=== PATIENT | male | born 1990 | race Caucasian/White ===

== ENCOUNTER → 2017-09-03 11:52 | Outpatient (CLI) | payer OTHER, SELFPAY ==
--- NOTE | 2017-09-03 12:07 | XR_ITS ---
XR chest 2V HISTORY: ITS.REASON: MYOFASCITIS ORDERING PHYSICIAN: Moses Bryson MD PATIENT AGE: 27 years COMPARISON: 07/03/2014 FINDINGS: The cardiomediastinal silhouette and pulmonary vascularity are within normal limits. The lungs are clear without infiltrates, suspicious nodules, or pleural effusions. No acute bony abnormalities. IMPRESSION: Negative chest, no acute finding
--- NOTE | 2017-09-03 12:07 | XR_ITS ---
XR shoulder RT min 2V HISTORY: ITS.REASON: MYOFASCITIS ORDERING PHYSICIAN: Moses Bryson MD PATIENT AGE: 27 years COMPARISON: FINDINGS: No fracture or dislocation. No lytic or blastic change. There is normal mineralization. The joint spaces are well-preserved. No significant degenerative/arthritic changes. No erosive changes evident. IMPRESSION: Negative, no acute finding
== END ==
PROVIDERS: PCP Family Medicine; Visit Provider Family Medicine
DX: M60.9 Myositis, unspecified (principal)
CPT/HCPCS: 71046; 73030

== ENCOUNTER → 2017-09-14 10:52 | Outpatient (CLI) | payer OTHER, SELFPAY ==
--- NOTE | 2017-09-14 10:57 | XR_ITS ---
EXAM: XR cervical spine 5V HISTORY: Right shoulder pain with burning sensation ITS.REASON: ACUTE RT SHOULDER PAIN ORDERING PHYSICIAN: Moses Bryson MD PATIENT AGE: 27 years COMPARISON: FINDINGS: Normal alignment. No fracture or dislocation. No lytic or blastic change. No significant degenerative change. The disc spaces are preserved. No evidence of cervical rib IMPRESSION: Negative cervical spine
== END ==
PROVIDERS: PCP Family Medicine; Visit Provider Family Medicine
DX: M25.511 Pain in right shoulder (principal)
CPT/HCPCS: 72050

== ENCOUNTER 2017-09-21 10:00 | Outpatient (RCR) | payer OTHER, SELFPAY | END 2017-09-21 10:01 | disposition home or self-care (01) | LOC: PT 10:00 | PROVIDERS: Family Provider Family Medicine; PCP Family Medicine; Visit Provider Family Medicine | DX: M60.9 Myositis, unspecified (principal) | CPT/HCPCS: 97010; 97014; 97110; 97140; 97163; G0283 ==

== ENCOUNTER → 2017-12-11 10:41 | Outpatient (CLI) | payer OTHER, SELFPAY ==
--- NOTE | 2017-12-11 10:45 | MR_ITS ---
MR shoulder RT wo con Ordering Physician: Israel Barrow MD Patient Age: 27 years: Male HISTORY: ITS.REASON: ACUTE PAIN OF RIGHT SHOULDER Right shoulder pain since FebruaryMarch 2017. Limited range of motion. No known injury. TECHNIQUE: Multiplanar multisequence imaging on 1.5 T MR. COMPARISON :Plain films right shoulder 09/03/2017 FINDINGS Supraspinatus tendon.. Minimal findings There is increased signal at the insertion of the supraspinatus tendon which I favor reflects tendinopathy. No full-thickness tear nor tendon retraction. ... Question possible small superior surface partial tear.. I do not see a definitive full-thickness tear. However there is a tiny amount scant fluid at the subdeltoid subacromial bursa which makes it difficult to totally exclude a tiny pinhole tear. The latter could reflect mild bursitis. Modest subacromial space and coronal images. 6 mm beneath the tip of the acromion on these views.. Acromion for overall has a slight from the AC joint of the thumbs fairly horizontal with only scant hours sloping above the humeral head.. On the sagittal is moderately pronounced posterior downward sloping of acromion which narrows the posterior subacromial space to 6 mm near the junction of the supraspinatus and infraspinatus. This is where we encounter some trace scant fluid at the subacromial bursa here -barely evident. Coronal image 7. This could reflect some minimal bursitis rather tiny pinhole rotator cuff tear. . Subscapularis tendon appears intact but does demonstrate slight increased signal superior aspect of its insertion. Reflect some minor tendinopathy. Unimpressive.. Infraspinatus tendon appears intact. With some minor fluid just at the infraspinatus insertion. Possible early obstruction erosion feature. Glenoid. Osseous glenoid intact with anterior and posterior glenoid labrum are nicely seen and intact. Perhaps Scant increased fluid at the shoulder joint outlines the structures. Mild AC joint arthropathy. IMPRESSION . 1. Supraspinatus tendinopathy near insertion at critical zone. There may be a small partial tear here involving superior bursal surface.. I do not see a definitive full-thickness tear & there is No prominent rotator cuff tear nor tendon retraction tendon retraction. These the above features are minimal signal changes and findings at the supraspinatus tendon However there is scant trace fluid at the subdeltoid subacromial bursa.-The latter can reflect a tiny pinhole tear; although can be seen with subacromial bursitis. 2. Patient with slight downward orientation of the acromion on coronal projection and on the sagittal view posterior downward sloping of the acromion with narrowing of the subacromial space in these regions. This anatomy may contribute to impingement symptoms 2. Mild AC joint arthropathy.
== END ==
PROVIDERS: Family Provider Family Medicine; PCP Family Medicine; Visit Provider Family Medicine
DX: M25.511 Pain in right shoulder (principal)
CPT/HCPCS: 73221

== ENCOUNTER → 2018-06-07 07:44 | Outpatient (CLI) | payer OTHER, SELFPAY ==
--- NOTE | 2018-06-07 07:51 | US_ITS ---
US abdomen limited History:] Quadrant pain Ordering Physician:Ilya Martinez MD Patient Age: 27 years Comparison:None Findings: Pancreas:Unremarkable. No obvious mass or abnormal fluid collection. No ductal dilatation Liver:No focal liver lesions demonstrated. Homogeneous echogenicity. No intrahepatic biliary ductal dilatation evident Right Kidney:Unremarkable. Normal size and echogenicity. No hydronephrosis Gallbladder:No gallstones, gallbladder wall thickening, pericholecystic fluid, or biliary dilatation. There is a small amount sludge in the gallbladder. Impression: 1. No stones gallbladder wall thickening or pericholecystic fluid. 2. Small amount sludge within the gallbladder
== END ==
PROVIDERS: PCP Family Medicine; Visit Provider Family Medicine
DX: R10.11 Right upper quadrant pain (principal)
CPT/HCPCS: 76705

== ENCOUNTER → 2018-06-21 10:08 | Outpatient (CLI) | payer OTHER, SELFPAY ==
--- NOTE | 2018-06-21 10:12 | NM_ITS ---
NM hepatobiliary w pharm HISTORY: Right upper quadrant pain ITS.REASON: GB SLUDGE ORDERING PHYSICIAN: Ilya Martinez MD PATIENT AGE: 28 years COMPARISON: 06/07/2018 DOSE: 8.70 MCI TC Choletec 2.5 MCG INJ into RT ANT. FINDINGS: Homogeneous activity is present within the hepatic parenchyma. Activity is present in the gallbladder by 5 minutes. Activity is present in the small bowel by 10 minutes. The gallbladder ejection fraction is calculated to be 97% The patient did not report pain or other symptoms during CCK infusion. IMPRESSION: Unremarkable hepatobiliary scan and gallbladder ejection fraction. No evidence of common or cystic duct obstruction with normal gallbladder ejection fraction
--- NOTE | 2018-06-21 10:27 | HMH.ITSHM ---
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 []VENLAFAXINE
== END ==
PROVIDERS: PCP Family Medicine; Visit Provider Family Medicine
DX: K82.8 Other specified diseases of gallbladder (principal)
CPT/HCPCS: 78227; A9537; J2805

== ENCOUNTER 2018-07-06 09:00 | Outpatient (RCR) | payer OTHER, SELFPAY ==
--- NOTE | 2018-06-15 09:48 | HMH.OTOPEV ---
OT Inpatient Evaluation Rehab OT Outpatient Eval Start: 06/15/18 09:29 Freq: Status: Active Protocol: Document 06/15/18 09:31 TFRY (Rec: 06/15/18 09:48 TFRY [id number]) Electronically Signed By Rose Harris, OT 06/15/18 09:31 Outpatient Therapy Subjective History Subjective History THIS IS A 28 YEAR OLD RIGHT HANDED MALE REFERRED TO OCCUPATIONAL THERAPY FOR RIGHT SHOULDER BICEP TENDINITIS; TENDINOPATHY OF ROTATOR CUFF, SCAPULOTHORACIC BURSITIS. PATIENT REPORTS THE PROBLEM HAS BEEN ONGOING SINCE MARCH 20, 2017. PATIENT REPORTS THAT HE CAN NOT RECALL DOING ANYTHING TO HIS SHOULDER. REPORTS THAT HE HAS BEEN TO THERAPY IN THE PAST WITHOUT ANY IMPROVEMENT. Chief Complaint Pain Stiff Symptom Type Ache Sharp Burning Numbness Tingling Symptoms Relieved By Nothing Symptoms Aggravated By Physical Activity Prior Functional Limitations None Current Functional Limitations Reaching Lifting Housework Dressing Sleeping Symptom Description Constant but Variable Level of pain today (0-10) 5 Pain scale - at its best (0-10) 5 Pain scale - at its worst (0-10) 10 Shoulder/Elbow Eval Shoulder Objective Measurements Palpation Tenderness tenderness shoulder exam standard right tenderness over the bicipital tendon right shoulder exam standard tenderness over the SA bursa shoulder right exam standard Shoulder Palpation Findings Tenderness Shoulder ROM Right Shoulder ROM Limitations Pain Shoulder Abduction Active Range of 65 Motion (degrees) Shoulder Abduction Passive Range of 70 Motion (degrees) Shoulder Flexion Active Range of Motion 70 (degrees) Query Text: Shoulder Flexion Passive Range of Motion 80 (degrees) Shoulder External Rotation Active Range WFL of Motion (degrees) Shoulder External Rotation Passive Range WFL of Motion (degrees) Shoulder Internal Rotation Active Range WFL of Motion (degrees) Shoulder Internal Rotation Passive Range WFL
== END 2018-07-06 09:10 | disposition home or self-care (01) ==
LOC: OT 09:00
PROVIDERS: Visit Provider Orthopaedic Surgery
DX: M67.911 Unspecified disorder of synovium and tendon, right shoulder (principal); M25.511 Pain in right shoulder; M75.21 Bicipital tendinitis, right shoulder; M75.51 Bursitis of right shoulder; G89.29 Other chronic pain
CPT/HCPCS: 97033; 97110; 97165

== ENCOUNTER → 2018-08-11 12:54 | Outpatient (CLI) | payer OTHER, SELFPAY ==
--- NOTE | 2018-08-11 | IR_ITS ---
MR shoulder RT w con, IR arthrogram shoulder RT HISTORY:Chronic right shoulder pain with tingling and shoulder and popping, anterior pain with limited range of motion ITS.REASON: RIGHT SHOULDER PAIN ORDERING PHYSICIAN: Lacho Gordillo PATIENT AGE: 28 years Comparison: 12/11/2017 Right shoulder arthrogram: Following obtaining informed consent and timeout procedure under aseptic conditions and local anesthesia with 1% buffered lidocaine and 21-gauge spinal needle was inserted into the right shoulder joint via the anterior approach. A mixture of gadolinium, Optiray, and lidocaine was injected into the shoulder joint. There was a small amount of extravasation in the subscapularis region which may be due to overfilling. The patient tolerated the procedure well without evidence of immediate complications. Arthrogram findings: No abnormal localization of contrast in the subacromial region that would indicate a rotator cuff tear. No evidence of adhesive capsulitis. The patient was then taken to the MRI suite where routine MRI arthrogram sequences were performed including ABER images. FINDINGS: There was no evidence of contrast in the subacromial region that would indicate a rotator cuff tear. Supraspinatus and infraspinatus tendons appear intact there is minimal amount fluid is present in the subacromial region suggesting mild bursitis. There is mild subacromial stenosis with mild thickening of the supraspinatus tendon distally suggesting tendinopathy/tendinosis. No obvious labral tear. The bicipital tendon is in place. IMPRESSION: 1. No evidence of rotator cuff tear. 2. No evidence of labral tear. 3. Subacromial stenosis with tendinopathy/tendinosis of the supraspinatus tendon with a small amount of fluid in the subacromial region suggesting mild bursitis
== END ==
PROVIDERS: PCP Family Medicine; Visit Provider Orthopaedic Surgery
DX: M25.512 Pain in left shoulder (principal)
CPT/HCPCS: 73040; 73222

== ENCOUNTER 2019-01-31 23:13 | Observation (INO) ==
--- NOTE | 2019-01-31 23:45 | Emergency Department Note ---
ED Disposition Clinical Impression: UGIB (upper gastrointestinal bleed), Obesity (BMI 30-39.9) Disposition: Admitted as Observation Condition on Discharge: Good Instructions: DI for Diarrhea and Traveler's Diarrhea -- Adult, DI for Diarrhea and Traveler's Diarrhea -- Child, DI for Nausea -- Adult, DI for Nausea -- Child Referrals: Ilya Martinez MD [Primary Care Provider] - - Critical Care Critical Care Time: No Attestation: On 01/31/19, the high probability of a clinically significant, sudden or life threatening deterioration of the following system(s) required my full and direct attention, intervention and personal management. The time I documented below is in addition to time spent performing reported procedures but includes the following listed in this critical care notation. Medical Decision Making - Medical Records Medical records reviewed: Yes: I reviewed the patient's medical records. - Yasmany Inquiry Pt receiving controlled substance: No Vital Signs: 01/31/19 23:24 02/01/19 00:17 Temperature 98.8 F Temperature Source Oral Pulse Rate [Orthostatic Lying Right Brachial] 78 Pulse Rate [Orthostatic Sitting Right Brachial] 83 Pulse Rate [Orthostatic Standing Right Brachial] 93 H Pulse Rate [Right Brachial] 105 H Respiratory Rate 20 Blood Pressure [Orthostatic Lying Right Arm] 127/78 Blood Pressure [Orthostatic Sitting Right Arm] 130/92 H Blood Pressure [Orthostatic Standing Right Arm] 127/86 Blood Pressure [Right Arm] 159/103 H Blood Pressure Mean [Right Arm] 121 Blood Pressure Source [Right Arm] Automatic Cuff Blood Pressure Position [Right Arm] Sitting 02 Sat by Pulse Oximetry 94 L Oxygen Delivery Method Room Air - Lab Data Lab results reviewed: Yes: I reviewed the patient's lab results. Lab Results 01/31/19 23:39: WBC 13.2 H D, RBC 4.59 L, Hgb 13.7 L, Hct 41.0 L, MCV 89.4, MCH 29.9, MCHC 33.4, RDW 13.0, Plt Count 418, MPV 6.9 L, Neut % (Auto) 74.5, Lymph % (Auto) 16.9, Haakon % (Auto) 8.0, Eos % (Auto) 0.4, Baso % (Auto) 0.2, Neut # (Auto) 9.8 H, Lymph # (Auto) 2.2, Haakon # (Auto) 1.1 H, Eos # (Auto) 0.1, Baso # (Auto) 0.0 01/31/19 23:39: Sodium 139, Potassium 4.1, Chloride 104, Carbon Dioxide 24, Anion Gap 15.1 H, BUN 20 H D, Creatinine 1.06, Estimated Creat Clear 201, Estimated GFR 84, Est GFR ( Amer) 101, Glucose 113 H, Calcium 8.7, Total Bilirubin 0.2, AST 20, ALT 62, Alkaline Phosphatase 110, Total Protein 7.2, Albumin 3.7, Globulin 3.5 H, Albumin/Globulin Ratio 1.1, Amylase 17 L 01/31/19 23:39: Lipase 228 01/31/19 23:50: Urine Color Yellow, Urine Appearance Clear, Urine pH 6.0, Ur Specific [place] 1.025, Urine Protein Negative, Urine Glucose (UA) Negative, Urine Ketones Negative, Urine Blood Negative, Urine Nitrate Negative, Urine Bilirubin Negative, Urine Urobilinogen 0.2, Ur Leukocyte Esterase Negative, Urine WBC Occasional, Urine Bacteria 1+, Urine Mucus Trace 01/31/19 23:53: Stool Occult Blood Positive A Result diagrams: 01/31/19 23:39 01/31/19 23:39 Orders (Tests/Meds): ED MEDICATIONS Generic Name Dose Route Start Last Admin Trade Name Freq PRN Reason Stop Dose Admin Sodium Chloride 1,000 mls @ 999 mls/hr 01/31/19 23:45 01/31/19 23:57 Sod Chlor 0.9% 1000ml Bag IV 02/01/19 00:45 999 mls/hr .Q1H1M [facility] Administration Discontinued Medications Generic Name Dose Route Start Last Admin Trade Name Freq PRN Reason Stop Dose Admin Ondansetron HCl 4 mg 01/31/19 23:43 01/31/19 23:57 Zofran 4mg/2ml Vial IV 01/31/19 23:44 4 mg ONCE ONE Administration ORDERS Category Date Time Status CXR 2 view (NOT portable) [XR chest 2V] Stat Exams 02/01/19 00:28 Ordered - Physician Consults Physician Consulted: terrence Reason -: Admission GI Bleed HPI - General Chief complaint: Nausea/Vomiting/Diarrhea Stated complaint: vomiting, stool almost black,lightheaded Time Seen by Provider: 01/31/19 23:43 Mode of Arrival: Ambulatory Source of Information: Patient, Spouse, Medical Record Limitations: No Limitations Description of Symptoms (Recalled from ER Triage Doc. by RN): Pt was seen yesterday in the ED and was dx with pleurisy, he states he started vomiting black and having black stools. - History of Present Illness HPI Narrative: pt with recent ed visit for clinical specialist cough and had neg cxr with dx of pleurisy- pt was given steroids and nsaif - pt dev episode of nausea and brownish vomitus and has dark stool - no prev hx of gi bleed- no etoh or tob complaint: melena Onset (ago): hour(s) Consistency: intermittent Severity: moderate Associated symptoms: nausea Treatments Prior to Arrival: none - Related Data Home Medications Medication Instructions Recorded Confirmed Diclofenac Sodium [Diclofenac 75mg 75 mg PO BID 01/31/19 01/31/19 Tab] predniSONE [Prednisone 50mg Tab] 50 mg PO DAILY 01/31/19 01/31/19 Allergies Allergy/AdvReac Type Severity Reaction Status Date / Time amoxicillin Allergy Unknown Verified 01/31/19 23:29 allergy reaction erythromycin base Allergy Unknown Verified 01/31/19 23:29 allergy reaction [facility] History - Hepatitis A Screen Drug use history?: No High risk sexual behaviors?: No History of sexually transmitted infection?: No Currently employed?: No Childcare worker?: No Do you have indoor plumbing?: Yes Do you have electricity?: Yes Attestation statement:: This patient has been screened for Hepatitis A risk factors. I have reviewed the patient's past medical history: Yes Laterality Cases: Bilateral: Tonsillectomy - Social History Smoking Status: Never smoker Alcohol Intake: former Occupational Status: unemployed Housing: house Household Members: other Family Hx:: Cancer, Coronary Artery Disease, Diabetes ROS Obtained: Yes All systems reviewed & no additional complaints - Constitutional Constitutional: Denies fever(s) - Eyes Eyes: Denies change in vision - ENT Ears, Nose, Mouth, and Throat: Denies sore throat - Cardiovascular Cardiovascular: Denies chest pain - Respiratory Respiratory: No cough - Gastrointestinal Gastrointestingal: Reports: as per HPI, abdominal pain, black, tarry stools, vomiting - Genitourinary Male Genitourinary: Denies hematuria - Musculoskeletal Musculoskeletal: Denies joint swelling - Integumentary/Breasts Skin/Breast: Denies rash - Neurologic Neurologic: Denies seizure-like activity Physical Exam - General General appearance: alert, obese - Head Head exam: normocephalic - Eye Eye exam: Present: PERRL, EOMI. Absent: scleral icterus - ENT ENT exam: Present: mucous membranes dry - Neck Neck exam: Present: trachea midline - Respiratory Respiratory exam: Present: normal lung sounds bilaterally. Absent: respiratory distress - Cardiovascular Cardiovascular exam: Present: regular rate. Absent: systolic murmur - Abdominal Exam Abdominal exam: Present: soft. Absent: tenderness, guarding, rebound - Rectal Exam Rectal exam: Present: normal rectal tone, heme (+) stool, black stool - Extremities Exam Extremities exam: Present: full ROM - Back Exam Back exam: Present: full ROM - Neurological Exam Neurological exam: Present: alert, oriented X3, CN II-XII intact - Psychiatric Psychiatric exam: Present: normal affect - Skin Skin exam: Present: rash
[2019-01-31 23:56] LABS: Basophils % 0.2 % (0.1-2.0); Eosinophils # 0.1 K/mm3 (0.0-0.4); Eosinophils % 0.4 % (0.1-12.0); Hemoglobin 13.7 g/dL (14.1-18.0); Lymphocytes # 2.2 K/mm3 (0.7-4.5); Lymphocytes % 16.9 % (10-50); Mean Corpuscular HGB Conc 33.4 g/dL (31.8-35.4); Mean Corpuscular Volume 89.4 fl (80-94); Mean Platelet Volume 6.9 fl (7.4-10.4); Monocytes # 1.1 K/mm3 (0.1-1.0); Neutrophils # 9.8 K/mm3 (1.8-7.8); Neutrophils % 74.5 % (37.0-80.0); Platelet Count 418 K/mm3 (142-424); Red Blood Count 4.59 M/mm3 (4.60-6.20); White Blood Count 13.2 K/mm3 (4.8-10.8)
[2019-01-31 23:58] LABS: Microscopic, Urine URINE MICROSCOPIC (MICROSCOPIC)
[2019-01-31 23:59] LABS: Appearance,Urine CLEAR (Clear); Bilirubin,Urine Negative (Negative); Blood, Urine Negative (Negative); Color,Urine YELLOW (Yellow); Glucose,Urine (UA) Negative (Negative); Ketones,Urine Negative (Negative); Leukocyte Esterase,Urine Negative (Negative); Protein,Urine Negative (Negative); Specific Gravity, Urine 1.025 (1.005-1.030); Urobilinogen,Urine 0.2 EU/dl (0.2)
[2019-02-01 00:07] LABS: Albumin Level 3.7 gm/dL (3.4-5.0); Albumin/Globulin Ratio 1.1 (1.1-1.8); Anion Gap 15.1 mEq/L (5-15); Bilirubin,Total 0.2 mg/dL (0.2-1.0); Calcium 8.7 mg/dL (8.5-10.1); Globulin 3.5 gm/dl (1.3-3.2); Total Protein,Serum 7.2 gm/dL (6.4-8.2)
[2019-02-01 00:12] LABS: Bacteria,Urine 1+ /lpf; Mucus,Urine Trace /lpf; WBC,Urine Occasional #/hpf (0-3)
[2019-02-01 06:18] LABS: Basophils % 0.3 % (0.1-2.0); Eosinophils # 0.1 K/mm3 (0.0-0.4); Eosinophils % 0.4 % (0.1-12.0); Hematocrit 38.9 % (42.0-52.0); Hemoglobin 12.6 g/dL (14.1-18.0); Lymphocytes # 3.7 K/mm3 (0.7-4.5); Mean Corpuscular HGB Conc 32.5 g/dL (31.8-35.4); Mean Corpuscular Volume 90.2 fl (80-94); Mean Platelet Volume 6.6 fl (7.4-10.4); Monocytes # 0.8 K/mm3 (0.1-1.0); Monocytes % 6.6 % (1.7-9.3); Neutrophils # 6.8 K/mm3 (1.8-7.8); Neutrophils % 59.6 % (37.0-80.0); Platelet Count 338 K/mm3 (142-424); Red Blood Count 4.32 M/mm3 (4.60-6.20); White Blood Count 11.3 K/mm3 (4.8-10.8)
[2019-02-01 06:25] LABS: Anion Gap 9.7 mEq/L (5-15); Calcium 8.3 mg/dL (8.5-10.1)
--- NOTE | 2019-02-01 07:32 | Pharmacy Consult Notes ---
[facility] Pharm[facility] VTE Monitoring - Patient Demographics Admission date: 01/31/19 Report Date: 02/01/19 Time: 07:32 Allergies/Adverse Reactions: Patient Allergies amoxicillin Allergy (Verified 01/31/19 23:29) Unknown allergy reaction erythromycin base Allergy (Verified 01/31/19 23:29) Unknown allergy reaction Height: 1.88 m Weight: 142.116 kg Patient Problems: Current Active Problems UGIB (upper gastrointestinal bleed) (Acute) Obesity (BMI 30-39.9) (Acute) - VTE Risk Labs: VTE Related Lab Results Hgb 12.6 g/dL (14.1-18.0) L 02/01/19 06:08 Hct 38.9 % (42.0-52.0) L 02/01/19 06:08 Plt Count 338 K/mm3 (142-424) 02/01/19 06:08 BUN 16 mg/dL (7-18) 02/01/19 06:08 Creatinine 0.98 mg/dL (0.70-1.30) 02/01/19 06:08 Estimated Creat Clear 228 mL/min (50-200) 02/01/19 06:08 Was VTE Risk Assessment Performed: Yes VTE Score: 1 VTE Risk Level: Very Low Risk - Prophylaxis VTE Prophylaxis Ordered?: Yes Types of VTE Prophylaxis: TEDS Knee High Location of Applied Device: Bilateral Lower Extremeties - VTE Diagnosis Confirmed Treatment or plan recommended: Continue Current Treatment
--- NOTE | 2019-02-01 09:08 | History & Physical Report ---
*Admission Date: 01/31/19 *Chief complaint: Black stools and vomiting *History of present illness: Mr. Mendez is a 28-year-old male with a history of anxiety disorder and right shoulder pain who initially presented to [facility] emergency room on 01/30 with dizziness, cough, pain with breathing, and pain in upper back and anterior chest around the shoulders. He was evaluated and given a Duoneb treatment, Toradol, and 125 mg of Solu-Medrol. He was discharged with prescriptions for prednisone and diclofenac. Patient also describes diaphoresis and chilling. He did take several doses of these medications but then began to vomit. He describes large amounts of brown emesis and did have several black stools. He cannot remember how many stools he had yesterday. He last vomited last evening. He describes some stomach discomfort. He thus presented again to [facility] emergency room. Stool tested positive for occult blood. He was given an IV fluid bolus and Zofran. He continued with the same cough and painful breathing. He was admitted with a GI bleed. This a.m. patient is comfortable. He denies further chilling, stools, nausea, and vomiting. He continues to have a cough. He continues to have pain on inspiration. [facility] History Medical History: Denies:: Cancer, Coronary Artery Disease, Diabetes Mellitus Type 1, Diabetes Mellitus Type 2, Gastroesophageal Reflux Disease(GERD), MRSA *Have you ever received a pneumonia vaccine?: No *Have you received a flu vaccine this season?: No Other Medical History: Denies: Anemia Laterality Cases: Bilateral: Tonsillectomy Amputation: No - *Social History Educational Level: Completed High School Smoking Status: Never smoker Alcohol Intake: current Alcohol Intake Frequency:: a few times a month *Occupational Status:: unemployed Housing: house Household Members: family *Travel in the last 8 weeks: None Family Hx:: Cancer, Coronary Artery Disease, Diabetes, Hypertension Review of Systems - Constitutional Reports chills, Reports fever(s), Reports weakness - Eyes Denies change in vision - ENT Denies ear pain, Denies sore throat - *Cardiovascular Reports chest pain, Denies shortness of breath, Denies irregular heart rhythm - *Respiratory Reports cough, Reports pain on inspiration, Reports pain with cough, Denies shortness of breath, Denies coughing up blood, Denies wheezing - *Gastrointestinal Reports change in stools, Reports loose stools, Reports black, tarry stools, Reports nausea, Reports vomiting, Denies abdominal pain, Denies change in bowel habits, Denies constipation, Denies heartburn, Denies incontinent of stools, Denies vomiting blood, Denies bright, red blood in stools - *Genitourinary Denies difficulty urinating - *Musculoskeletal Reports joint pain (Right shoulder), Denies abnormal walking - *Neurologic Reports dizziness, Denies abnormal walking, Denies abnormal speech, Denies behavioral changes, Denies unsteadiness, Denies localized weakness, Denies seizure-like activity - Psychiatric Reports anxiety Meds Home Medications Medication Instructions Recorded Confirmed Type Diclofenac Sodium [Diclofenac 75mg 75 mg PO BID 01/31/19 01/31/19 History Tab] predniSONE [Prednisone 50mg Tab] 50 mg PO DAILY 01/31/19 01/31/19 History Allergies Allergy/AdvReac Type Severity Reaction Status Date / Time amoxicillin Allergy Unknown Verified 01/31/19 23:29 allergy reaction erythromycin base Allergy Unknown Verified 01/31/19 23:29 allergy reaction Exam Vital signs and Labs for Last 24 Hours: Temp Pulse Resp BP Pulse Ox 98.3 F 102 H 19 108/69 L 93 L 02/01/19 07:49 02/01/19 07:49 02/01/19 07:49 02/01/19 07:49 02/01/19 07:49 Laboratory Results - last 24 hr 01/31/19 23:39: WBC 13.2 H D, RBC 4.59 L, Hgb 13.7 L, Hct 41.0 L, MCV 89.4, MCH 29.9, MCHC 33.4, RDW 13.0, Plt Count 418, MPV 6.9 L, Neut % (Auto) 74.5, Lymph % (Auto) 16.9, [place] % (Auto) 8.0, Eos % (Auto) 0.4, Baso % (Auto) 0.2, Neut # (Auto) 9.8 H, Lymph # (Auto) 2.2, [place] # (Auto) 1.1 H, Eos # (Auto) 0.1, Baso # (Auto) 0.0 01/31/19 23:39: Sodium 139, Potassium 4.1, Chloride 104, Carbon Dioxide 24, Anion Gap 15.1 H, BUN 20 H D, Creatinine 1.06, Estimated Creat Clear 201, Estimated GFR 84, Est GFR ( Amer) 101, Glucose 113 H, Calcium 8.7, Total Bilirubin 0.2, AST 20, ALT 62, Alkaline Phosphatase 110, Total Protein 7.2, Albumin 3.7, Globulin 3.5 H, Albumin/Globulin Ratio 1.1, Amylase 17 L 01/31/19 23:39: Lipase 228 01/31/19 23:50: Urine Color Yellow, Urine Appearance Clear, Urine pH 6.0, Ur Specific [place] 1.025, Urine Protein Negative, Urine Glucose (UA) Negative, Urine Ketones Negative, Urine Blood Negative, Urine Nitrate Negative, Urine Bilirubin Negative, Urine Urobilinogen 0.2, Ur Leukocyte Esterase Negative, Urine WBC Occasional, Urine Bacteria 1+, Urine Mucus Trace 01/31/19 23:53: Stool Occult Blood Positive A 02/01/19 06:08: WBC 11.3 H, RBC 4.32 L, Hgb 12.6 L, Hct 38.9 L, MCV 90.2, MCH 29.3, MCHC 32.5, RDW 13.0, Plt Count 338, MPV 6.6 L, Neut % (Auto) 59.6, Lymph % (Auto) 33.0, [place] % (Auto) 6.6, Eos % (Auto) 0.4, Baso % (Auto) 0.3, Neut # (Auto) 6.8, Lymph # (Auto) 3.7, [place] # (Auto) 0.8, Eos # (Auto) 0.1, Baso # (Auto) 0.0 02/01/19 06:08: Sodium 141, Potassium 3.7, Chloride 106, Carbon Dioxide 29 D, Anion Gap 9.7, BUN 16, Creatinine 0.98, Estimated Creat Clear 228, Estimated GFR 92, Est GFR ( Amer) 111, Glucose 85 D, Calcium 8.3 L I & O for Last 24 hours: Intake & Output 01/29/19 01/30/19 01/31/19 02/01/19 11:59 11:59 11:59 11:59 Intake Total 530 / 530 Balance 530 / 530 Weight 313 lb 5 oz Radiology Reports for the Last 24 Hours: 02/01/2019 chest x-ray IMPRESSION: No acute findings. - Constitutional no acute distress - *Routine HEENT Exam Head: Present: normocephalic, atraumatic Eye: Present: PERRL. Absent: conjunctival icterus, scleral injection ENT: Present: mucous membranes moist, oropharynx clear - *Routine Neck Exam Present: supple. Absent: carotid bruit, lymphadenopathy, thyromegaly - *Routine Respiratory Exam Present: CTA bilaterally (Anteriorly and posteriorly) - *Routine Cardiovascular Exam Present: RRR - *Routine Abdominal Exam Present: soft, normoactive bowel sounds. Absent: tenderness, distended, guarding, organomegaly, mass - *Routine Extremities Exam Absent: edema, calf tenderness - *Routine Neurological Exam Present: alert, oriented X3 Assessment and Plan (1) UGIB (upper gastrointestinal bleed) Current visit: Yes Status: Acute Category: Medical Code(s): K92.2 - Gastrointestinal hemorrhage, unspecified (2) Anxiety Current visit: Yes Status: Chronic Category: Medical Code(s): F41.9 - Anxiety disorder, unspecified (3) Pleuritis Current visit: No Status: Acute Category: Medical Code(s): R09.1 - Pleurisy - Assessment and plan all Dx Assessment and Plan for all problems:: Serial H&H. Consult with surgery for possible scope. PPI. IV fluids.
--- NOTE | 2019-02-01 10:15 | Consult Report ---
*Admission Date: 01/31/19 *Reason for consult:: "GI Bleed" *History of present illness: The following is obtained from the admission history and physical: Mr. Mendez is a 28-year-old male with a history of anxiety disorder and right shoulder pain who initially presented to [facility] ency room on 01/30 with dizziness, cough, pain with breathing, and pain in upper back and anterior chest around the shoulders. He was evaluated and given a Duoneb treatment, Toradol, and 125 mg of Solu-Medrol. He was discharged with prescriptions for prednisone and diclofenac. Patient also describes diaphoresis and chilling. He did take several doses of these medications but then began to vomit. He describes large amounts of brown emesis and did have several black stools. He cannot remember how many stools he had yesterday. He last vomited last evening. He describes some stomach discomfort. He thus presented again to [facility] emergency room. Stool tested positive for occult blood. He was given an IV fluid bolus and Zofran. He continued with the same cough and painful breathing. He was admitted with a GI bleed. Review of Systems - Review of Systems Review of systems:: pertinent systems reviewed and negative unless documented below - *Neurologic Reports dizziness, Reports weakness, Denies abnormal walking, Denies abnormal speech, Denies behavioral changes, Denies unsteadiness, Denies localized weakness, Denies seizure-like activity [facility] History Medical History: Denies:: Cancer, Coronary Artery Disease, Diabetes Mellitus Type 1, Diabetes Mellitus Type 2, Gastroesophageal Reflux Disease(GERD), MRSA *Have you ever received a pneumonia vaccine?: No *Have you received a flu vaccine this season?: No Other Medical History: Denies: Anemia Laterality Cases: Bilateral: Tonsillectomy Amputation: No - *Social History Educational Level: Completed High School Smoking Status: Never smoker Alcohol Intake: current Alcohol Intake Frequency:: a few times a month *Occupational Status:: unemployed Housing: house Household Members: family *Travel in the last 8 weeks: None Family Hx:: Cancer, Coronary Artery Disease, Diabetes, Hypertension Meds Home Medications Medication Instructions Recorded Confirmed Type Diclofenac Sodium [Diclofenac 75mg 75 mg PO BID 01/31/19 01/31/19 History Tab] predniSONE [Prednisone 50mg Tab] 50 mg PO DAILY 01/31/19 01/31/19 History Venlafaxine HCl [Effexor XR 75mg 225 mg PO DAILY 02/01/19 02/01/19 History capsule] Allergies Allergy/AdvReac Type Severity Reaction Status Date / Time amoxicillin Allergy Unknown Verified 01/31/19 23:29 allergy reaction erythromycin base Allergy Unknown Verified 01/31/19 23:29 allergy reaction Exam Vital signs and Labs for Last 24 Hours: Temp Pulse Resp BP Pulse Ox 98.3 F 102 H 19 108/69 L 93 L 02/01/19 07:49 02/01/19 07:49 02/01/19 07:49 02/01/19 07:49 02/01/19 07:49 Laboratory Results - last 24 hr 01/31/19 23:39: WBC 13.2 H D, RBC 4.59 L, Hgb 13.7 L, Hct 41.0 L, MCV 89.4, MCH 29.9, MCHC 33.4, RDW 13.0, Plt Count 418, MPV 6.9 L, Neut % (Auto) 74.5, Lymph % (Auto) 16.9, [place] % (Auto) 8.0, Eos % (Auto) 0.4, Baso % (Auto) 0.2, Neut # (Auto) 9.8 H, Lymph # (Auto) 2.2, [place] # (Auto) 1.1 H, Eos # (Auto) 0.1, Baso # (Auto) 0.0 01/31/19 23:39: Sodium 139, Potassium 4.1, Chloride 104, Carbon Dioxide 24, Anion Gap 15.1 H, BUN 20 H D, Creatinine 1.06, Estimated Creat Clear 201, Estimated GFR 84, Est GFR ( Amer) 101, Glucose 113 H, Calcium 8.7, Total Bilirubin 0.2, AST 20, ALT 62, Alkaline Phosphatase 110, Total Protein 7.2, Albumin 3.7, Globulin 3.5 H, Albumin/Globulin Ratio 1.1, Amylase 17 L 01/31/19 23:39: Lipase 228 01/31/19 23:50: Urine Color Yellow, Urine Appearance Clear, Urine pH 6.0, Ur Specific [place] 1.025, Urine Protein Negative, Urine Glucose (UA) Negative, Urine Ketones Negative, Urine Blood Negative, Urine Nitrate Negative, Urine Bilirubin Negative, Urine Urobilinogen 0.2, Ur Leukocyte Esterase Negative, Urine WBC Occasional, Urine Bacteria 1+, Urine Mucus Trace 01/31/19 23:53: Stool Occult Blood Positive A 02/01/19 06:08: WBC 11.3 H, RBC 4.32 L, Hgb 12.6 L, Hct 38.9 L, MCV 90.2, MCH 29.3, MCHC 32.5, RDW 13.0, Plt Count 338, MPV 6.6 L, Neut % (Auto) 59.6, Lymph % (Auto) 33.0, [place] % (Auto) 6.6, Eos % (Auto) 0.4, Baso % (Auto) 0.3, Neut # (Auto) 6.8, Lymph # (Auto) 3.7, [place] # (Auto) 0.8, Eos # (Auto) 0.1, Baso # (Auto) 0.0 02/01/19 06:08: Sodium 141, Potassium 3.7, Chloride 106, Carbon Dioxide 29 D, Anion Gap 9.7, BUN 16, Creatinine 0.98, Estimated Creat Clear 228, Estimated GFR 92, Est GFR ( Amer) 111, Glucose 85 D, Calcium 8.3 L I & O for Last 24 hours: Intake & Output 01/29/19 01/30/19 01/31/19 02/01/19 11:59 11:59 11:59 11:59 Intake Total 530 / 530 Balance 530 / 530 Weight 313 lb 5 oz - *Routine HEENT Exam Head: Present: normocephalic Eye: Present: EOMI, PERRL ENT: Present: mucous membranes moist - *Routine Neck Exam Present: supple. Absent: lymphadenopathy - *Routine Respiratory Exam Present: CTA bilaterally - *Routine Cardiovascular Exam Present: RRR - *Routine Abdominal Exam Present: soft, normoactive bowel sounds. Absent: tenderness - *Routine Extremities Exam Absent: cyanosis, clubbing, edema - *Routine Skin Exam Present: warm. Absent: rash - *Routine Neurological Exam Present: alert, oriented X3 - Detailed Eye Exam Eyelids: Left normal inspection Results - Labs 02/01/19 06:08 02/01/19 06:08 Laboratory Results - last 24 hr 01/31/19 23:39: WBC 13.2 H D, RBC 4.59 L, Hgb 13.7 L, Hct 41.0 L, MCV 89.4, MCH 29.9, MCHC 33.4, RDW 13.0, Plt Count 418, MPV 6.9 L, Neut % (Auto) 74.5, Lymph % (Auto) 16.9, [place] % (Auto) 8.0, Eos % (Auto) 0.4, Baso % (Auto) 0.2, Neut # (Auto) 9.8 H, Lymph # (Auto) 2.2, [place] # (Auto) 1.1 H, Eos # (Auto) 0.1, Baso # (Auto) 0.0 01/31/19 23:39: Sodium 139, Potassium 4.1, Chloride 104, Carbon Dioxide 24, Anion Gap 15.1 H, BUN 20 H D, Creatinine 1.06, Estimated Creat Clear 201, Estimated GFR 84, Est GFR ( Amer) 101, Glucose 113 H, Calcium 8.7, Total Bilirubin 0.2, AST 20, ALT 62, Alkaline Phosphatase 110, Total Protein 7.2, Albumin 3.7, Globulin 3.5 H, Albumin/Globulin Ratio 1.1, Amylase 17 L 01/31/19 23:39: Lipase 228 01/31/19 23:50: Urine Color Yellow, Urine Appearance Clear, Urine pH 6.0, Ur Specific [place] 1.025, Urine Protein Negative, Urine Glucose (UA) Negative, Urine Ketones Negative, Urine Blood Negative, Urine Nitrate Negative, Urine Bilirubin Negative, Urine Urobilinogen 0.2, Ur Leukocyte Esterase Negative, Urine WBC Occasional, Urine Bacteria 1+, Urine Mucus Trace 01/31/19 23:53: Stool Occult Blood Positive A 02/01/19 06:08: WBC 11.3 H, RBC 4.32 L, Hgb 12.6 L, Hct 38.9 L, MCV 90.2, MCH 29.3, MCHC 32.5, RDW 13.0, Plt Count 338, MPV 6.6 L, Neut % (Auto) 59.6, Lymph % (Auto) 33.0, [place] % (Auto) 6.6, Eos % (Auto) 0.4, Baso % (Auto) 0.3, Neut # (Auto) 6.8, Lymph # (Auto) 3.7, [place] # (Auto) 0.8, Eos # (Auto) 0.1, Baso # (Auto) 0.0 02/01/19 06:08: Sodium 141, Potassium 3.7, Chloride 106, Carbon Dioxide 29 D, Anion Gap 9.7, BUN 16, Creatinine 0.98, Estimated Creat Clear 228, Estimated GFR 92, Est GFR ( Amer) 111, Glucose 85 D, Calcium 8.3 L Assessment and Plan (1) UGIB (upper gastrointestinal bleed) Current visit: Yes Status: Acute Category: Medical Code(s): K92.2 - Gastrointestinal hemorrhage, unspecified (2) Anxiety Current visit: Yes Status: Chronic Category: Medical Code(s): F41.9 - Anxiety disorder, unspecified (3) Pleuritis Current visit: No Status: Acute Category: Medical Code(s): R09.1 - Pleurisy - Assessment and plan all Dx Assessment and Plan for all problems:: Plan for urgent upper endoscopy.
--- NOTE | 2019-02-01 11:04 | Procedure Note ---
- Procedure: Date: 02/01/19 Procedure Performed:: Esophagogastroduodenoscopy with biopsy Indications:: Mr. Mendez is a 28-year-old male with a history of anxiety disorder and right shoulder pain who initially presented to [facility] emergency room on 01/30 with dizziness, cough, pain with breathing, and pain in upper back and anterior chest around the shoulders. He was evaluated and given a Duoneb treatment, Toradol, and 125 mg of Solu-Medrol. He was discharged with prescriptions for prednisone and diclofenac. Patient also describes diaphoresis and chilling. He did take several doses of these medications but then began to vomit. He describes large amounts of brown emesis and did have several black stools. He cannot remember how many stools he had yesterday. He last vomited last evening. He describes some stomach discomfort. He thus presented again to [facility] emergency room. Stool tested positive for occult blood. He was given an IV fluid bolus and Zofran. He continued with the same cough and painful breathing. He was admitted with a GI bleed. Of note, upon admission his hemoglobin was 13.7 with hematocrit of 41% and this morning it is 12.6 and 38.9%. Performing Provider:: Eliu Elder MD Referring Provider:: Ilya Martinez MD Sedation:: Propofol, ketamine Procedure:: Consent was obtained and patient was taken to endoscopy procedure room. Sedation was rather difficult to obtain initially as he required a significant amount of propofol followed by ketamine. Once adequate anesthetic was achieved the Olympus endoscope was inserted via the oropharynx. Occipital esophagus appeared unremarkable. In the distal esophagus there was evidence of erosive esophagitis with patchy circumferential exudate. This was between approximately 30 and 35 cm from the incisors. Gastroesophageal junction was approximately 35 cm from the incisors. There is no evidence of any active bleeding. Endoscope was advanced into the gastric lumen which was insufflated. Retroflexion revealed a moderate sliding hiatal hernia. Gastric lumen appeared relatively unremarkable. Pylorus was traversed and endoscope was advanced into the duodenal bulb and duodenal sweep which appeared unremarkable with no evidence of duodenitis or ulcers. Endoscope was withdrawn into the stomach and gastric mucosal biopsy was obtained for CLOtest for H. pylori. Due to the potential to reinitiate bleeding distal esophageal biopsy was not obtained at this time. Stomach was desufflated and endoscope was withdrawn. Findings:: Circumferential distal erosive esophagitis Moderate sliding hiatal hernia Recommendations:: Continue proton pump inhibitors. Monitor hemoglobin and hematocrit. Would plan for continuation of proton pump inhibitors as an outpatient and repeat endoscopy in several weeks to assess for healing of the erosive esophagitis and possible biopsies. Complications:: None immediately apparent Estimated blood obtained (mL): 1
--- NOTE | 2019-02-02 07:13 | Progress Note ---
Subjective Patient reports: feels better Narrative: Patient complains mainly of headache today. Tolerated some full liquids. Exam Vital signs and Labs for Last 24 Hours: Temp Pulse Resp BP Pulse Ox 98.2 F 82 18 113/59 L 97 02/02/19 04:00 02/02/19 04:00 02/02/19 04:00 02/02/19 04:00 02/02/19 04:00 I & O for Last 24 hours: Intake & Output 01/30/19 01/31/19 02/01/19 02/02/19 11:59 11:59 11:59 11:59 Intake Total 530 / 530 1976 Balance 530 / 530 1976 Weight 313 lb 5 oz 313 lb 5 oz - Constitutional no acute distress Progress Note: A&P (1) UGIB (upper gastrointestinal bleed) Status: Acute Current Visit: Yes (2) Anxiety Status: Chronic Current Visit: Yes (3) Pleuritis Status: Acute Current Visit: No Assessment and Plan for All Diagnoses:: Continue PPI. Advance diet.
--- NOTE | 2019-02-02 08:11 | Progress Note ---
Internal Medicine - PN: Subj *Date: 02/02/19 *Time: 08:08 Interval history: Patient complaint of a headache this morning. Has an ice pack on his forehead. States he ate yesterday without problems. He is not hungry this morning denies nausea. He has not vomited and has had no further loose stools. He has a periodic cough Exam Vital signs and Labs for Last 24 Hours: Temp Pulse Resp BP Pulse Ox 98.4 F 94 H 17 159/63 H 98 02/02/19 07:53 02/02/19 07:53 02/02/19 07:53 02/02/19 07:53 02/02/19 07:53 I & O for Last 24 hours: Intake & Output 01/30/19 01/31/19 02/01/19 02/02/19 11:59 11:59 11:59 11:59 Intake Total 530 / 530 2337 / 2337 Balance 530 / 530 2337 / 2337 Weight 313 lb 5 oz 313 lb 5 oz Radiology Reports for the Last 24 Hours: EGD per Dr. Elder 02/01/2019 Findings:: Circumferential distal erosive esophagitis Moderate sliding hiatal hernia - Constitutional no acute distress Comments: Lying in bed with eyes closed with ice pack on his forehead - *Routine Respiratory Exam Present: CTA bilaterally (Anteriorly and posteriorly) - *Routine Cardiovascular Exam Present: RRR - *Routine Abdominal Exam Present: soft, normoactive bowel sounds. Absent: tenderness - *Routine Extremities Exam Absent: edema, calf tenderness - *Routine Neurological Exam Present: alert, oriented X3 Assessment and Plan (1) UGIB (upper gastrointestinal bleed) Current visit: Yes Status: Acute Category: Medical Code(s): K92.2 - Gastrointestinal hemorrhage, unspecified (2) Anxiety Current visit: Yes Status: Chronic Category: Medical Code(s): F41.9 - Anxiety disorder, unspecified (3) Pleuritis Current visit: No Status: Acute Category: Medical Code(s): R09.1 - Pleurisy - Assessment and plan all Dx Assessment and Plan for all problems:: Should be able to go home today. We will give Tylenol for the headache.
[2019-02-02 08:30] LABS: Basophils # 0.1 K/mm3 (0-0.2); Basophils % 0.8 % (0.1-2.0); Eosinophils # 0.2 K/mm3 (0.0-0.4); Eosinophils % 2.2 % (0.1-12.0); Hematocrit 41.8 % (42.0-52.0); Hemoglobin 13.6 g/dL (14.1-18.0); Lymphocytes # 2.1 K/mm3 (0.7-4.5); Lymphocytes % 29.2 % (10-50); Mean Corpuscular HGB Conc 32.6 g/dL (31.8-35.4); Mean Corpuscular Volume 90.8 fl (80-94); Mean Platelet Volume 6.5 fl (7.4-10.4); Monocytes # 0.4 K/mm3 (0.1-1.0); Monocytes % 5.2 % (1.7-9.3); Neutrophils # 4.5 K/mm3 (1.8-7.8); Neutrophils % 62.7 % (37.0-80.0); Platelet Count 356 K/mm3 (142-424); Red Blood Count 4.61 M/mm3 (4.60-6.20); Red Cell Distribution Width 12.9 % (11.5-17.5); White Blood Count 7.1 K/mm3 (4.8-10.8)
--- NOTE | 2019-02-02 15:43 | Discharge Summary ---
General - General Admission date:: 02/01/19 Discharge date: 02/02/19 HPI HPI: Mr. Mendez is a 28-year-old male with a history of anxiety disorder and right shoulder pain who initially presented to [facility] emergency room on 01/30 with dizziness, cough, pain with breathing, and pain in upper back and anterior chest around the shoulders. He was evaluated and given a Duoneb treatment, Toradol, and 125 mg of Solu-Medrol. He was discharged with prescriptions for prednisone and diclofenac. Patient also describes diaphoresis and chilling. He did taken several doses of these medications but then began to vomit. He describes large amounts of brown emesis and did have several black stools. He cannot remember how many stools he had yesterday. He last vomited last evening. He describes some stomach discomfort. He thus presented again to [facility] emergency room. Stool tested positive for occult blood. He was given an IV fluid bolus and Zofran. He continued with the same cough and painful breathing. He was admitted with a GI bleed. This a.m. patient is comfortable. He denies further chilling, stools, nausea, and vomiting. He continues to have a cough. He continues to have pain on inspiration. Hospital Course Hospital Course: Patient had a chest x-ray showing nothing acute. He was admitted for serial H&H and a surgical consult. He was started on a PPI and IV fluids. He was seen in consultation by Dr. Elder who wanted to do an urgent upper endoscopy. This was performed on 02/01/2019 and he found circumferential distal erosive esophagitis a nd a moderate sliding hiatal hernia. Dr. Elder recommended continued proton pump inhibitors as well as to monitor the patient's H&H. He wanted to repeat an outpatient endoscopy in a few weeks. The patient was started on a full liquid diet and tolerated this well, therefore it was advanced to a bland diet. His only other complaint was of a headache, therefore Tylenol was ordered. His H&H increased and he was stable to be discharged home on a PPI. He will follow-up with Dr. Elder in the office as well as Dr. Martinez. Objective Vital signs: Temp Pulse Resp BP Pulse Ox 98.4 F 94 H 17 159/63 H 98 02/02/19 07:53 02/02/19 07:53 02/02/19 07:53 02/02/19 07:53 02/02/19 07:53 Narrative: - Constitutional no acute distress - *Routine HEENT Exam Head: Present: normocephalic, atraumatic Eye: Present: PERRL. Absent: conjunctival icterus, scleral injection ENT: Present: mucous membranes moist, oropharynx clear - *Routine Neck Exam Present: supple. Absent: carotid bruit, lymphadenopathy, thyromegaly - *Routine Respiratory Exam Present: CTA bilaterally (Anteriorly and posteriorly) - *Routine Cardiovascular Exam Present: RRR - *Routine Abdominal Exam Present: soft, normoactive bowel sounds. Absent: tenderness, distended, guarding, organomegaly, mass - *Routine Extremities Exam Absent: edema, calf tenderness - *Routine Neurological Exam Present: alert, oriented X3 Results Labs on day of discharge: Labs from last 24 hours 02/02/19 08:20 WBC 7.1 D RBC 4.61 Hgb 13.6 L Hct 41.8 L MCV 90.8 MCH 29.6 MCHC 32.6 RDW 12.9 Plt Count 356 MPV 6.5 L Neut % (Auto) 62.7 Lymph % (Auto) 29.2 Gordon % (Auto) 5.2 Eos % (Auto) 2.2 Baso % (Auto) 0.8 Neut # (Auto) 4.5 Lymph # (Auto) 2.1 Gordon # (Auto) 0.4 Eos # (Auto) 0.2 Baso # (Auto) 0.1 DS: Diagnosis - Discharge Diagnosis (1) UGIB (upper gastrointestinal bleed) Status: Acute (2) Anxiety Status: Chronic (3) Pleuritis Status: Acute Discharge Plan - Patient Discharge Instructions ACTIVITY: Continue current activity DIET: advance to your usual diet Patient Instructions: Gastrointestinal Bleeding, DI for Esophagitis - Follow up Plan Follow up with: Ilya Martinez MD [Primary Care Provider] - 1 week Disposition: Home, Self-[facility]itent[facility] Medications: Home Medications Medication Instructions Recorded Confirmed Type Venlafaxine HCl [Effexor XR 75mg 225 mg PO DAILY 02/01/19 02/01/19 History capsule] Omeprazole [Omeprazole 40mg 40 mg PO DAILY #30 cap 02/02/19 Rx Capsule] Prescriptions/Medication Reconciliation: New Omeprazole [Omeprazole 40mg Capsule] 40 mg PO DAILY #30 cap Continued Venlafaxine HCl [Effexor XR 75mg capsule] 225 mg PO DAILY Discontinued predniSONE [Prednisone 50mg Tab] 50 mg PO DAILY Diclofenac Sodium [Diclofenac 75mg Tab] 75 mg PO BID - Problem Reconciliation Problems Reviewed?: Yes
== END 2019-02-02 10:35 | disposition home or self-care (01) ==
LOC: 2ND 23:13 → ER 23:13 → 2ND 02-01 00:56
PROVIDERS: ADMIT Family Medicine; ATTEND Family Medicine
CPT/HCPCS: 36415; 71020; 71046; 80048; 80053; 81001; 82150; 82272; 83690; 85025; 87339; 96365; 96372; 99284; G0328; G0378; J2405

== ENCOUNTER 2019-10-01 08:32 | Emergency (ER) | payer OTHER, SELFPAY ==
--- NOTE | 2019-10-01 08:41 | HMH.EDEXTP ---
ED Disposition Clinical Impression: Fracture of toe Disposition: Home, Self-Care Condition on Discharge: Good Referrals: Ilya Martinez MD [Primary Care Provider] - - Critical Care Critical Care Time: No Attestation: On 10/01/19, the high probability of a clinically significant, sudden or life threatening deterioration of the following system(s) required my full and direct attention, intervention and personal management. The time I documented below is in addition to time spent performing reported procedures but includes the following listed in this critical care notation. Medical Decision Making - Medical Records Medical records reviewed: Yes: I reviewed the patient's medical records. - Yasmany Inquiry Pt receiving controlled substance: No Vital Signs: 10/01/19 08:42 Temperature 98.4 F Temperature Source Oral Pulse Rate [Left Radial] 79 Respiratory Rate 18 Blood Pressure [Right Arm] 121/79 Blood Pressure Mean [Right Arm] 93 Blood Pressure Position [Right Arm] Sitting 02 Sat by Pulse Oximetry 98 Oxygen Delivery Method Room Air - Lab Data Lab results reviewed: Yes: I reviewed the patient's lab results. Orders (Tests/Meds): ED MEDICATIONS Discontinued Medications Generic Name Dose Route Start Last Admin Trade Name Freq PRN Reason Stop Dose Admin Ibuprofen 600 mg 10/01/19 09:14 10/01/19 09:15 Motrin 600mg Tablet PO 10/01/19 09:15 600 mg ONCE ONE Administration ORDERS Category Date Time Status XR toe LT min 2V Stat Exams 10/01/19 08:46 Taken - Radiology Data #1 Image(s): Foot/Toes Preliminary Findings: Abnormal Extremity Problem HPI - General Chief complaint: Extremity Injury, Lower Stated complaint: [id number] Left foot 2nd toe Time Seen by Provider: 10/01/19 08:41 Mode of Arrival: Ambulatory Source of Information: Patient - History of Present Illness Complaint: extremity pain Onset (ago): minute(s) Consistency: constant Location: right Severity scale (1-10): 4 Quality: burning Radiation: proximal Relieving factors: nothing Exacerbating factors: nothing Associated symptoms: denies other symptoms Context: immobilization - Related Data Home Medications Medication Instructions Recorded Confirmed Omeprazole [Omeprazole 40mg 40 mg PO DAILY 04/13/19 05/31/19 Capsule] [id number]/Sod Sulf,Bicarb,Cl/KCl 240 ml PO Q10M 05/30/19 05/31/19 [[id number] and Electrolytes Soln] Allergies Allergy/AdvReac Type Severity Reaction Status Date / Time amoxicillin Allergy Unknown Verified 06/17/19 09:53 allergy reaction erythromycin base Allergy Unknown Verified 06/17/19 09:53 allergy reaction [facility] History - Hepatitis A Screen Attestation statement:: This patient has been screened for Hepatitis A risk factors. I have reviewed the patient's past medical history: Yes Medical History: Reports:: Depression Denies:: Aneurysm, Anxiety, Asthma, Atrial Fibrillation, Cancer, Congestive Heart Failure, Chronic Obstructive Pulmonary Disease (COPD), Coronary Artery Disease, Cerebrovascular Accident, Deep Vein Thrombosis, Diabetes Mellitus Type 1, Diabetes Mellitus Type 2, Gastroesophageal Reflux Disease(GERD), Gastrointestinal Bleed, Hyperlipidemia, Hypertension, Internal Pacemaker, Kidney Stones, Migraine, MRSA, Myocardial Infarction, Osteoporosis, Peripheral Artery Disease, Pulmonary Embolism, Renal Disease, Seizures, Supraventricular Tachycardia, Transient Ischemic Attacks (TIA), Valvular Heart Disease Other Medical History: Denies: Anemia, Arthritis, Blood Transfusion Reaction, Cataracts, Fibromyalgia, Glaucoma, Acquired Immunodeficiency Syndrome (AIDS), HIV, Liver Disease, Osteoporosis, Thyroid Disease Laterality Cases: Bilateral: Tonsillectomy Other Surgeries: Yes: Colonoscopy. No: Angioplasty, Appendectomy, Bariatric Surgery, CABG, Cancer Surgery, Cholecystectomy, Colon Resection, Colostomy, Hernia Repair, Hysterectomy-Tota
[2019-10-01 08:42] VITALS: BP 121/79; PULSE 79; RESP 18; TEMP 36.9; O2SAT 98; BMI 36.7
--- NOTE | 2019-10-01 08:46 | XR_ITS ---
PROCEDURE: XR TOE LT MIN 2V CLINICAL INDICATION: pain to 2nd and 3rd COMPARISON: None FINDINGS: There is mild diffuse soft tissue swelling about the distal phalanges of the 2nd and 3rd toes and possibly great toe as well the great toe 2nd 3rd and 4th toes are all included on images and appear intact with no evidence of recent or old fracture. There are no soft tissue foreign bodies. IMPRESSION: Questionable soft tissue swelling as described versus normal variation in this patient who appears to be somewhat obese after review of a previous chest film. Dictated by: Dr. Shaka Batista MD 10/01/2019 09:[address] Shaka Batista MD in [place] 10/01/2019 09:29
[2019-10-01 09:29] VITALS: BP 121/79; PULSE 78; RESP 16; TEMP 36.9; O2SAT 98
--- NOTE | 2019-10-01 09:32 | PC.NURSE ---
1st and 2nd toes lb taped cast boot applied
== END 2019-10-01 09:33 | disposition home or self-care (01) ==
PROVIDERS: Emergency Provider Family Medicine; PCP Family Medicine
DX: S92.505A Nondisplaced unspecified fracture of left lesser toe(s), initial encounter for closed fracture (principal); W22.03XA Walked into furniture, initial encounter; Y92.019 Unspecified place in single-family (private) house as the place of occurrence of the external cause
CPT/HCPCS: 29515; 73660; 99283

== ENCOUNTER → 2021-06-21 10:58 | Outpatient (CLI) | payer BC, SELFPAY ==
[2021-06-22 15:22] LABS: Covid-19 Nasal PCR Sendout Lex NOT DETECTED
== END ==
PROVIDERS: Visit Provider Nurse Practitioner
DX: Z20.822 Contact with and (suspected) exposure to COVID-19 (principal)
CPT/HCPCS: C9803; U0004; U0005

== ENCOUNTER 2022-11-16 16:21 | Emergency (ER) | payer BC, SELFPAY ==
--- NOTE | 2022-11-16 16:27 | XR_ITS ---
PROCEDURE INFORMATION: Exam: XR Right Foot Exam date and time: 11/16/2022 4:33 PM Age: 32 years old Clinical indication: Injury or trauma; Fall; Blunt trauma; Foot; Right; Additional info: Twisted it walkling TECHNIQUE: Imaging protocol: Radiologic exam of the right foot. Views: 3 or more views. COMPARISON: CR XR ANKLE RT MIN 3V 11/16/2022 4:31 PM FINDINGS: Bones/joints: No visible fracture or dislocation. Soft tissues: Normal. IMPRESSION: No visible fracture or dislocation.
--- NOTE | 2022-11-16 16:27 | XR_ITS ---
PROCEDURE INFORMATION: Exam: XR Right Ankle Exam date and time: 11/16/2022 4:31 PM Age: 32 years old Clinical indication: Injury or trauma; Other: Twisted right ankle and fell while walking; Blunt trauma; Additional info: Twisted while walking TECHNIQUE: Imaging protocol: Radiologic exam of the right ankle. Views: 3 or more views. COMPARISON: No relevant prior studies available. FINDINGS: Bones/joints: The mortise joint space is symmetric. No visible fracture or dislocation. Os peroneum noted. Soft tissues: Mild soft tissue swelling overlying the lateral malleolus. IMPRESSION: No visible fracture or dislocation.
[2022-11-16 16:30] VITALS: BP 131/87; PULSE 86; RESP 18; TEMP 36.9; O2SAT 98; BMI 41.1
--- NOTE | 2022-11-16 16:31 | XR_ITS ---
PROCEDURE INFORMATION: Exam: XR Right Femur Exam date and time: 11/16/2022 4:28 PM Age: 32 years old Clinical indication: Injury or trauma; Fall; Blunt trauma; Thigh or upper leg; Patient HX: Patient twisted right ankle and fell while walking. TECHNIQUE: Imaging protocol: Radiologic exam of the right femur. Views: 2 views. COMPARISON: CT ABDOMEN PELVIS W CON 04/13/2019 6:00 AM FINDINGS: Bones/joints: No visible fracture or dislocation. Soft tissues: Unremarkable. IMPRESSION: No visible fracture or dislocation.
--- NOTE | 2022-11-16 17:08 | EXP.UTC ---
Discharge Plan Disposition Patient Disposition: Home, Self-Care Condition: Good Prescriptions Prescriptions: No Action escitalopram oxalate 20 mg tablet 20 mg PO DAILY Label Comments: TAKE 1 TABLET BY MOUTH ONCE DAILY Referrals Follow up/Referrals: Ilya Martinez MD [Primary Care Provider] - See instructions Activity Restrictions/Add. Instructions Additional Instructions/Restrictions: *weight bearing as tolerated *RICE, Rest the extremity, Ice 15-20 minutes 3-4 times daily, Compress- wear the remberto wrap as discussed as much as possible to help reduce swelling and pain, Elevate the extremity when at rest *Remberto wrap is for support and help control swelling, use it except in the shower. Be sure that is not to tight but not to loose either *Elevate when resting? *Ibuprofen 600-800mg every 6-8 hours as needed for pain an inflammation. If need something more can take Tylenol in between doses of Ibuprofen to help Immediately follow up with your family doctor for new or worsening of symptoms, or no noticeable improvement over the next 3-5 days Clinical Impressions Clinical Impression: Fall Qualifiers: Encounter type: initial encounter Qualified Code(s): W19.XXXA - Unspecified fall, initial encounter Instructions Patient Instructions: Contusion, DI for Ankle Sprain, DI for Contusion, DI for Foot Sprain Discharge ED Provider: Dilma Rubin [facility] General Stated complaint: AO06 RT ankle inj Mode of Arrival: Ambulatory Source of Information: Patient Limitations: No Limitations Time Seen by Provider: 11/16/22 16:45 Description of Symptoms (Recalled from Triage Doc. by RN): PATIENT C/O INJURY TO RIGHT ANKLE, FOOT AND THIGH AFTER FALLING ON THURSDAY HEENT Symptoms (Recalled from RN notes): No Resp Symptoms (Recalled from RN notes): No Skin Symptoms (Recalled from RN notes): No MS Symptoms (Recalled from RN notes): Yes Functional Status (Recalled from RN notes): WNL History of Present Illness Provider Complaint: Patient states that he has been having pain in his right foot and ankle since falling yesterday and having pain and bruising to his right upper thigh area States that he was sitting down and his feet fell asleep and when he stood up he fell and landed on his right leg States that today he was still having swelling and bruising so he came in to get checked Denies any other injury Related Data Home Medications Medication Instructions Recorded Confirmed escitalopram oxalate 20 mg tablet 20 mg PO DAILY Depression 11/16/22 11/16/22 Allergies Allergy/AdvReac Type Severity Reaction Status Date / Time amoxicillin Allergy Unknown Verified 10/18/20 12:50 allergy reaction erythromycin base Allergy Unknown Verified 10/18/20 12:50 allergy reaction Worker's Comp Is this a Worker's Comp case?: No [facility] Disclaimer: The information contained in this section may have been updated after the patient was seen, as this information can be updated by other users. Medical History (Updated 11/16/22 @ 17:14 by Dilma Rubin APRN) Anxiety Depression Surgical History (Updated 11/16/22 @ 16:40 by Barbara Wan RN) History of tonsillectomy History of wisdom tooth extraction Social History Smoking Status: Never smoker alcohol intake: never substance use type: other current occupational status: other Travel in the last 8 weeks: None household members: family housing: other current occupation: 3[employer] ROS Obtained: Yes All systems reviewed & no additional complaints except as documented and Yes Systems reviewed as appropriate & no additional complaints except as documented Constitutional Constitutional: Reports system reviewed and no additional complaints, except as documented, Reports as per HPI and Denies fever(s) ENT Ears, Nose, Mouth, and Throat: Reports system reviewed and no additional complaints, except as documented and Reports as per HPI Respira
[2022-11-16 17:15] VITALS: BP 131/87; PULSE 86; RESP 18; TEMP 36.9; O2SAT 98
== END 2022-11-16 17:18 | disposition home or self-care (01) ==
PROVIDERS: Emergency Provider Nurse Practitioner; PCP Family Medicine
DX: S70.11XA Contusion of right thigh, initial encounter (principal); S93.401A Sprain of unspecified ligament of right ankle, initial encounter; S93.601A Unspecified sprain of right foot, initial encounter; F41.9 Anxiety disorder, unspecified; F32.A Depression, unspecified; W18.39XA Other fall on same level, initial encounter
CPT/HCPCS: 73552; 73610; 73630; 99204; 99212; G0463

== ENCOUNTER → 2023-01-22 10:56 | Outpatient (CLI) | payer BC, SELFPAY ==
--- NOTE | 2023-01-22 11:02 | MR_ITS ---
FINAL REPORT CLINICAL HISTORY: AC JOINT ARTHROPATHY right shoulder pain with limited rom FINDINGS: Multi planar MR imaging of the right shoulder was performed. The supraspinatus tendon appears intact. There is no abnormal fluid in the subacromial/subdeltoid bursa. The anterior and posterior glenoid david appear intact. The biceps tendon appears intact. There is mild heterotrophic change of the acromioclavicular joint. IMPRESSION: Mild heterotrophic change of the acromioclavicular joint. Reviewed, Interpreted and Dictated by Atilio Llamas MD Transcribed by Allison Nichols Authenticated and [facility]
== END ==
PROVIDERS: PCP Family Medicine; Visit Provider Family Medicine
DX: M25.511 Pain in right shoulder (principal); M75.101 Unspecified rotator cuff tear or rupture of right shoulder, not specified as traumatic; M19.011 Primary osteoarthritis, right shoulder
CPT/HCPCS: 73221

== ENCOUNTER 2023-10-25 10:12 | Emergency (ER) | payer BC, SELFPAY ==
[2023-10-25 11:05] VITALS: BP 143/97; PULSE 104; RESP 18; TEMP 37.1; O2SAT 98; BMI 42.3
--- NOTE | 2023-10-25 11:18 | EXP.UTC ---
Discharge Plan Disposition Patient Disposition: Home, Self-Care Condition: Good Prescriptions Prescriptions: New [id number] 3.5-10,000-1 mg/mL-unit/mL-% solution 4 drp Ear-Left Q8H 7 Days Qty: 10 0RF methylprednisolone 4 mg Tablets,Dose Pack 4 mg PO DIRECTED 6 Days Qty: 21 0RF Rx Instructions: Take 1 pack as directed for 6 days cefdinir 300 mg capsule 300 mg PO BID Qty: 20 0RF No Action escitalopram oxalate 20 mg tablet 20 mg PO DAILY Patient Comments: TAKE 1 TABLET BY MOUTH ONCE DAILY Referrals Follow up/Referrals: Ilya Martinez MD [Primary Care Provider] - See instructions Activity Restrictions/Add. Instructions Additional Instructions/Restrictions: Drink plenty of fluids. Take tylenol or ibuprofen for pain or fever. Take the medications as directed. Follow up with your regular doctor. GO TO THE ER FOR ANY WORSENING SYMPTOMS Use the ear drops as directed. Clinical Impressions Clinical Impression: Left acute otitis media, Left otitis externa Stand Alone Forms Stand Alone Forms: Work/School Release Instructions Patient Instructions: How to Instill Ear Drops Discharge ED Provider: Marvel Monk [facility] General Stated complaint: left ear pain/swelling Time Seen by Provider: 10/25/23 11:17 Related Data Home Medications Medication Instructions Recorded Confirmed escitalopram oxalate 20 mg tablet 20 mg PO DAILY Depression 11/16/22 10/25/23 Previous Rx's Medication Instructions Recorded cefdinir 300 mg capsule 300 mg PO BID #20 caps 10/25/23 methylprednisolone 4 mg tablets in 4 mg PO DIRECTED 6 days #21 tabs 10/25/23 a dose pack [id number]-[id number]-[id number] 3.5 4 drp Ear-Left Q8H 7 days #10 mL 10/25/23 mg/mL-10,000 unit/mL-1 % ear solution Allergies Allergy/AdvReac Type Severity Reaction Status Date / Time amoxicillin Allergy Unknown Verified 10/25/23 11:24 allergy reaction erythromycin base Allergy Unknown Verified 10/25/23 11:24 allergy reaction [facility] Disclaimer: The information contained in this section may have been updated after the patient was seen, as this information can be updated by other users. Medical History (Updated 10/25/23 @ 11:35 by Marvel Monk APRN) Depression Anxiety Surgical History History of tonsillectomy History of wisdom tooth extraction Social History Smoking Status: Never smoker alcohol intake: never substance use type: other current occupational status: other Travel in the last 8 weeks: None household members: family housing: other current occupation: [employer] ROS Obtained: Yes All systems reviewed & no additional complaints except as documented Constitutional Constitutional: Denies chills and Denies fever(s) Eyes Eyes: Denies eye discharge ENT Ears, Nose, Mouth, and Throat: Denies ear discharge, Reports otalgia, Denies hearing loss, Denies sinus pain and Reports sore throat Cardiovascular Cardiovascular: Denies chest pain and Denies dyspnea Respiratory Respiratory: Denies chest congestion, Reports cough and Denies dyspnea Gastrointestinal Gastrointestingal: Denies abdominal pain, diarrhea, nausea or vomiting Musculoskeletal Musculoskeletal: Denies arthralgias Integumentary/Breasts Skin/Breast: Denies rash Physical Exam General General appearance: alert and in no apparent distress Head Head exam: atraumatic, normocephalic and normal inspection Eye Eye exam: Present normal appearance; Absent PERRL or EOMI ENT ENT exam: Present mucous membranes moist and normal external ear exam Expanded ENT Exam TM/Canal exam: Bilateral TM: erythema, bulging and effusion Nose exam: Absent sinus tenderness Nasal speculum exam: Bilateral: normal Mouth exam: Present normal external inspection and other; Absent drooling Teeth exam: Present normal inspection Throat exam: Present tonsillar erythema and tonsillomegaly Neck Neck exam: Present normal inspection, full ROM and trachea midline; Absent tenderness, meningismus or lymphadenopathy Chest Chest inspection: Present normal inspection and symmetric chest wall rise; Absent tenderness Respiratory Respiratory exam: Present normal lung sounds bilaterally; Absent respiratory distress, wheezes or stridor Cardiovascular Cardiovascular exam: Present regular rate, normal rhythm and normal heart sounds; Absent tachycardia or irregular rhythm Abdominal Exam Abdominal exam: Present soft and normal bowel sounds; Absent distention, tenderness, guarding, rebound or rigidity Extremities Exam Extremities exam: Present normal inspection and normal capillary refill; Absent tenderness, joint swelling or calf tenderness Back Exam Back exam: Present normal inspection and full ROM; Absent tenderness, CVA tenderness (R) or CVA tenderness (L) Neurological Exam Neurological exam: Present alert, oriented X3, CN II-XII intact, normal gait and reflexes normal; Absent motor sensory deficit Psychiatric Psychiatric exam: Present normal affect and normal mood Skin Skin exam: Present warm, dry, intact and normal color Lymphatic Lymphatic Findings: no adenopathy Medical Decision Making Medical Records Medical records reviewed: No I reviewed the patient's medical records. Yasmany Inquiry Pt receiving controlled substance: No
[2023-10-25 11:45] VITALS: BP 143/97; PULSE 104; RESP 18; TEMP 37.1; O2SAT 98
== END 2023-10-25 11:45 | disposition home or self-care (01) ==
PROVIDERS: Emergency Provider Nurse Practitioner Family; PCP Family Medicine
DX: H66.92 Otitis media, unspecified, left ear (principal); H60.92 Unspecified otitis externa, left ear; H92.02 Otalgia, left ear
CPT/HCPCS: 99212; 99214; G0463

== ENCOUNTER 2024-05-18 09:34 | Emergency (ER) | payer BC, SELFPAY ==
[2024-05-18 09:35] VITALS: BP 128/91; PULSE 96; RESP 18; TEMP 36.5; O2SAT 98; BMI 42.3
[2024-05-18 10:00] VITALS: BP 124/86; PULSE 94; O2SAT 96
[2024-05-18 10:10] LABS: Coronavirus 19, PCR Not Detected (NotDetected); Influenza A, PCR Not Detected (NotDetected); Influenza B, PCR Not Detected (NotDetected)
[2024-05-18 10:30] VITALS: BP 127/87; PULSE 92; O2SAT 93
[2024-05-18 11:01] VITALS: BP 130/86; PULSE 80; O2SAT 95
[2024-05-18 11:30] VITALS: BP 118/85; PULSE 91; O2SAT 92
--- NOTE | 2024-05-18 11:34 | XR_ITS ---
PROCEDURE INFORMATION: Exam: XR Chest Exam date and time: 05/18/2024 11:44 AM Age: 33 years old Clinical indication: Cough TECHNIQUE: Imaging protocol: Radiologic exam of the chest. Views: 2 views. COMPARISON: CR XR CHEST 2V 02/01/2019 12:28 AM FINDINGS: Lungs: Unremarkable. No consolidation. Pleural spaces: Unremarkable. No pleural effusion. No pneumothorax. Heart/Mediastinum: Unremarkable. No cardiomegaly. Bones/joints: Unremarkable. IMPRESSION: No acute findings.
--- NOTE | 2024-05-18 11:41 | ED_ITS ---
Discharge Plan Disposition Patient Disposition: Home, Self-Care Chief Complaint: Upper Respiratory Infection Prescriptions Prescriptions: New zwnaxsnbdywysek-szkengwip-ZE [Bromfed DM] 2-30-10 mg/5 mL syrup 5 ml PO Q6H PRN (Reason: cold symptoms) Qty: 118 0RF doxycycline hyclate 100 mg capsule 100 mg PO BID 7 Days Qty: 14 0RF No Action escitalopram oxalate 20 mg tablet 20 mg PO DAILY Patient Comments: TAKE 1 TABLET BY MOUTH ONCE DAILY yvthhazr-vfcudnwrt-DB 3.5-10,000-1 mg/mL-unit/mL-% solution 4 drp Ear-Left Q8H 7 Days Qty: 10 0RF methylprednisolone 4 mg Tablets,Dose Pack 4 mg PO DIRECTED 6 Days Qty: 21 0RF Rx Instructions: Take 1 pack as directed for 6 days cefdinir 300 mg capsule 300 mg PO BID Qty: 20 0RF Referrals Follow up/Referrals: Ilya Martinez MD [Primary Care Provider] - See instructions Activity Restrictions/Add. Instructions Additional Instructions/Restrictions: At this time it was felt you are safe to be discharged home. If new or worsening symptoms please do not hesitate to return the emergency department. Please take antibiotics as prescribed and if symptoms persist beyond 10 days follow-up with your family doctor to ensure they are headed in the right direction. Clinical Impressions Clinical Impression: Atypical pneumonia Print Language Print Language: [place] Discharge ED Provider: Kenton Hemphill General Adult HPI General Chief complaint: Upper Respiratory Infection Stated complaint: chest comgestion,Weakness Time Seen by Provider: 05/18/24 10:00 Mode of Arrival: Ambulatory Source of Information: Patient Limitations: No Limitations Description of Symptoms (Recalled from ER Triage Doc. by RN): c/o sinus pressure, drainage, sneezing, coughing and BUSH since Thursday History of Present Illness HPI narrative: Patient is a 33-year-old male with no pertinent past medical history presents emergency department for evaluation of upper respiratory symptoms. Onset was acute, since Thursday he has had sinus pressure, drainage, sneezing, coughing. His family members are developing similar symptoms to him after his started. Due to persistent symptoms he presents here for continued evaluation. No other acute complaints at this time. Related Data Home Medications ?Medication ?Instructions ?Recorded ?Confirmed escitalopram oxalate 20 mg tablet 20 mg PO DAILY Depression 11/16/22 10/25/23 Previous Rx's ?Medication ?Instructions ?Recorded cefdinir 300 mg capsule 300 mg PO BID #20 caps 10/25/23 methylprednisolone 4 mg tablets in 4 mg PO DIRECTED 6 days #21 tabs 10/25/23 a dose pack rcmsiese-buptjfdjj-fsgvjlxdp 3.5 4 drp Ear-Left Q8H 7 days #10 mL 10/25/23 mg/mL-10,000 unit/mL-1 % ear solution hsjhrzhtzdgffol-xkyrowjghbhlpzm-VB 5 ml PO Q6H PRN cold symptoms #118 05/18/24 2 mg-30 mg-10 mg/5 mL oral syrup mL (Bromfed DM) doxycycline hyclate 100 mg capsule 100 mg PO BID Pneumonia 7 days #14 05/18/24 caps Allergies Allergy/AdvReac Type Severity Reaction Status Date / Time amoxicillin Allergy Unknown Verified 10/25/23 11:24 allergy reaction erythromycin base Allergy Unknown Verified 10/25/23 11:24 allergy reaction PFSH PFS Disclaimer: The information contained in this section may have been updated after the patient was seen, as this information can be updated by other users. Medical History (Updated 05/18/24 @ 12:08 by Kenton Hemphill MD) Depression Anxiety Surgical History History of tonsillectomy History of wisdom tooth extraction Social History Smoking Status: Never smoker alcohol intake: never substance use type: other current occupational status: other Travel in the last 8 weeks: None household members: family housing: other current occupation: [employer] Have you lived/traveled outside [place] in past 30 days?: No Contact w/someone who lives/traveled outside [place] past 30 days?: No Exposure to someone with infectious disease in past 14 days?: No Do you have a fever (greater than 100.4 F or 38 C)?: No Have you tested positive for COVID-19: No Exposed to someone with COVID-19 in past 14 days?: No Do you have a sore throat?: No Do you have a cough?: No Do you have any weakness?: Yes Do you have any diarrhea?: No Are you experiencing any unusual bleeding?: No Do you have any muscle aches/pain?: No Do you have any abdominal pain?: No Are you experiencing loss of taste or smell?: No Other Medical History Have you received the Flu Vaccine for this season: No Have you received the Pneumonia Vaccine: No ROS Obtained: Yes Systems reviewed as appropriate & no additional complaints except as documented Physical Exam General General appearance: alert and in no apparent distress Head Head exam: atraumatic and normocephalic Eye Eye exam: Present PERRL ENT ENT exam: Present mucous membranes moist and other (Mildly erythematous posterior oropharynx no exudate uvula midline) Neck Neck exam: Present normal inspection Chest Chest inspection: Present normal inspection and symmetric chest wall rise Respiratory Respiratory exam: Present normal lung sounds bilaterally; Absent respiratory distress Cardiovascular Cardiovascular exam: Present regular rate and normal rhythm Abdominal Exam Abdominal exam: Present soft; Absent tenderness Extremities Exam Extremities exam: Present normal inspection Neurological Exam Neurological exam: Present alert, CN II-XII intact and normal gait Psychiatric Psychiatric exam: Present normal affect Skin Skin exam: Present warm and dry Medical Decision Making Medical Records Screening: Per USPSTF and CDC recommendations, given the prevalence of disease in our region, it is our hospital?s policy to screen for HIV and viral Hepatitis for all patients aged 18 and over and those with ongoing risk factors. Yasmany Inquiry Pt receiving controlled substance: No Vital Signs: 05/18/24 09:35 05/18/24 10:00 05/18/24 10:30 Temperature 97.7 F Temperature Source Oral Pulse Rate 94 H 92 H Pulse Rate [Left Radial] 96 H Respiratory Rate 18 Blood Pressure 124/86 127/87 Blood Pressure [Right Arm] 128/91 H Blood Pressure Mean [Right Arm] 103 02 Sat by Pulse Oximetry 98 96 93 L Oxygen Delivery Method Room Air Room Air Room Air 05/18/24 11:01 05/18/24 11:30 Temperature Temperature Source Pulse Rate 80 91 H Pulse Rate [Left Radial] Respiratory Rate Blood Pressure 130/86 118/85 Blood Pressure [Right Arm] Blood Pressure Mean [Right Arm] 02 Sat by Pulse Oximetry 95 92 L Oxygen Delivery Method Room Air Room Air Lab Data Lab Results 05/18/24 10:08: SARS-CoV-2 (PCR) Not detected, Influenza A Untype (PCR) Not detected, Influenza Type B (PCR) Not detected Orders (Tests/Meds): ORDERS Category Date Time Status XR chest 2V Stat Exams 05/18/24 11:34 Taken Rapid PCR Covid and Flu A/B Stat Lab 05/18/24 10:08 Completed Medical Decision Narrative: In summary patient is a healthy 33-year-old male with past medical history described above presents emergency department for evaluation of cough, congestion. Patient is hemodynamically stable nontoxic-appearing upon arrival, afebrile. History and physical consistent with viral respiratory infection differential includes pneumonia, among others. Limited workup will be conducted with viral swab and chest x-ray. Workup with hematologic labs and intracranial imaging was considered however given patient has a nonfocal exam combined with history and physical be deferred at this time. Viral swab reviewed by me and negative. Chest x-ray informally interpreted by me, interstitial opacities consistent with atypical pneumonia. Patient was treated with doxycycline for which the first dose will be administered here in the emergency department. Patient was discharged with a prescription for doxycycline and Bromfed and was given return precautions. Critical Care Critical Care Time Critical Care Time: No
[2024-05-18 12:21] VITALS: BP 128/87; PULSE 85; RESP 16; TEMP 36.5; O2SAT 97
[2024-05-18] MEDS: DOXYCYCLINE HYCL 100 MG TABLET PO (12:22)
== END 2024-05-18 12:24 | disposition home or self-care (01) ==
PROVIDERS: Emergency Provider Emergency Medicine; PCP Family Medicine
DX: J18.9 Pneumonia, unspecified organism (principal); R51.9 Headache, unspecified; R05.9 Cough, unspecified; R53.1 Weakness; R09.89 Other specified symptoms and signs involving the circulatory and respiratory systems; R06.7 Sneezing
CPT/HCPCS: 71046; 87636; 99283